=== PATIENT | female | born 1935 | race Asian ===

== ENCOUNTER 2019-01-04 09:17 | Emergency (ER) | payer BC ==
--- NOTE | 2019-01-04 09:51 | EKG ---
FACILITY: [facility] PATIENT NAME: VICKIE HERNANDEZ : [id number] MR: [id number] V: [id number] EXAM DATE: ORDERING PHYSICIAN: PRIYA VAGN TECHNOLOGIST: Test Reason : dizziness Blood Pressure : / mmHG Vent. Rate : 064 BPM Atrial Rate : 064 BPM P-R Int : 162 ms QRS Dur : 086 ms QT Int : 452 ms P-R-T Axes : -08 056 059 degrees QTc Int : 466 ms Sinus rhythm Nonspecific ST findings inferior leads Abnormal ECG No previous ECGs available Confirmed by GIULIANO ESTEVES ([id number]) on 01/04/2019 12:40:55 PM Referred By: Confirmed By:GIULIANO ESTEVES
[2019-01-04 09:53] LABS: PLATELET COUNT, AUTOMATED 210 K/uL (150-450)
[2019-01-04 09:58] LABS: INR 0.96
--- NOTE | 2019-01-04 10:18 | RADIOLOGY IMAGING REPORT ---
FACILITY: [facility] PATIENT NAME: Joaquín Simon : 1935 MR: [id number] V: [id number] EXAM DATE: ORDERING PHYSICIAN: PRIYA VANG TECHNOLOGIST: Location: [facility] [place] Patient: Joaquín Simon : 1935 Visit/Account:[id number] Date of Sevice: 01/04/2019 CT BRAIN NO CONTRAST Indication: dizziness; left sided numbness Comparison: None. Technique: Noncontrast head CT vertex to the skull base obtained. One of the following dose optimizat ion techniques was utilized in the performance of this exam: automated exposure control; adjustment o f the mA and/or kV according to the patient's size; or use of an iterative reconstruction technique. Specific details can be referenced in the facility's radiology CT exam operational policy. Findings: Brain: Ramirez-white matter differentiation and cortex are maintained. Ventricles and sulci:Ventricles and sulci are symmetric in size. There is no abnormal extra-axial flu id collection or mass. Paranasal sinuses:Visualized paranasal sinuses and mastoid air cells are clear. Calvarium:Bones of the skull and skull base are intact. Orbits and soft tissues: Right and left globes and soft tissues of the head are normal. Impression: Normal head CT. No evidence of infarct hemorrhage mass or fracture. Report Dictated By: Zan Sanches at 01/04/2019 10:07 AM Report E-Signed By: Zan Sanches at 01/04/2019 10:09 AM WSN:[id number]
--- NOTE | 2019-01-04 10:19 | ER Report ---
History and Physical Time Seen By MD: 09:21 Hx. of Stated Complaint: PATIENT IS NOT [place] SPEAKING. PATIENTS DAUGHTER REPORTS PATIENT STARTED HAVING BALANCE ISSUES AND LEFT SIDED WEAKNESS STARTING YESTERDAY AT 1600. HPI/ROS CHIEF COMPLAINT: Dizziness HISTORY OF PRESENT ILLNESS: Patient is an 83-year-old female who does not speak any rash but is here with her daughter who speaks [place]ij[place] well. Apparently patient was having some difficulty with balance and dizziness that began around 4 PM yesterday. She denies any focal motor weakness. But just feels unsteady on her feet. She denies any headache, she denies chest pain or shortness of breath. Daughter does not notice any change in the patient's speech. There is no prior history of stroke. The electronic medical record was reviewed for this patient. Patient is followed by Dr. Nguyen. Daughter states that the patient is fairly healthy and normally walks 2-3 miles a day. It was during her walk yesterday that she noticed severe dizziness and imbalance. There is no focal motor weakness noted at that time. The daughter. Patient states the symptoms persisted so she was brought to the emergency department for evaluation. REVIEW OF SYSTEMS: Constitutional: No fever, no chills. Eyes: No discharge. ENT: No sore throat. Cardiovascular: No chest pain, no palpitations. Respiratory: No cough, no shortness of breath. Gastrointestinal: No abdominal pain, no vomiting. Musculoskeletal: No back pain. Skin: No rashes. Neurological: No headache. Dizziness Allergies: Coded Allergies: No Known Drug Allergies (Unverified , 06/15/16) Home Meds Active Scripts Felodipine (FELODIPINE ER) 2.5 Mg Tab.er.24h, 1 TAB PO DAILY for 90 Days, #90 TAB 4 Refills Prov:ARAMIS NGUYEN MD 06/26/18 Alendronate Sodium (FOSAMAX) 70 Mg Tablet, 1 TAB PO QWK for 90 Days, #12 TAB 4 Refills Prov:ARAMIS NGUYEN MD 06/26/18 Reported Medications Glucosam/Chond/Hyalu/Cf Borate (Move Free Joint Health Tablet) 750 Mg-100 Mg- 1.65 Mg-108 Mg Tablet, 1 TAB PO DAILY 06/26/18 Aspirin (ASPIR 81) 81 Mg Tablet., 1 TAB PO QDAY 04/25/18 [place]-3 Fatty Acids/Fish Oil (FISH OIL 1,000 MG CAPSULE) 1 Each Capsule, 1 CAP PO QDAY 04/25/18 Mv-Mn/Folic Acid/Calcium/Vit K (Women's 50 Plus Multivit Tab) 400 Mcg-500 Mg Calcium-20 Mcg Tablet, 1 TAB PO QDAY 04/25/18 Past Medical/Surgical History Past medical history significant for hyperlipidemia, hypertension, history of kidney stones, history of left ankle fracture in the remote past. Smoking Status: Never Smoker Hx Substance Use Disorder: No Hx Alcohol Use: No Constitutional Vital Sign - Last 24 Hours 01/04/19 09:20 Temp 98.0 Pulse 68 Resp 16 O2 Delivery Room Air Physical Exam General Appearance: The patient is alert, has no immediate need for airway protection and no signs of toxicity. Pupils equal and round no pallor or injection. Extraocular muscles are intact and symmetrical. ENT, Mouth: Mucous membranes are moist. Respiratory: There are no retractions, lungs are clear to auscultation. Cardiovascular: Regular rate and rhythm. Gastrointestinal: Abdomen is soft and non tender, no masses, bowel sounds normal. Neurological: Awake and alert. No obvious focal motor weakness, Skin: Warm and dry, no rashes. Musculoskeletal: Neck is supple non tender. Extremities are nontender, nonswollen and have full range of motion. NIH Stroke Scale: 0 Level of consciousness: Alert -0 Answers both questions correctly-0 Performs both tasks correctly-0 Best Gaze: Normal-0 Visual: No visual loss-0 Facial Palsy: Normal, symmetrical movements-0 Motor Left Arm: No drift for 10 seconds-0 Motor Right Arm: No drift for 10 seconds-0 Motor Left Leg: No drift for 5 seconds-0 Motor Right Leg: No drift for 5 seconds-0 Limb Ataxia: Absent-0 Sensory: Normal, no sensory loss-0 Best Language: Normal, no aphasia-0 Dysarthria: Normal-0 Extinction and Inattention: No abnormality-0 Medical Decision Making Data Points Result Diagram: 01/04/1992401/04/19924 Laboratory Hematology Test 01/04/19 09:25 White Blood Count 6.5 k/uL (4.5-11.0) Red Blood Count 4.89 M/uL (4.17-5.56) Hemoglobin 15.6 g/dL (12.0-16.0) Hematocrit 45.6 % (34.0-47.0) Mean Corpuscular Volume 93.3 fL (80.0-96.0) Mean Corpuscular Hemoglobin 32.0 pg (26.0-33.0) Mean Corpuscular Hemoglobin Concent 34.3 g/dL (32.0-36.0) Red Cell Distribution Width 14.3 % (11.5-14.5) Platelet Count 210 K/uL (150-450) Mean Platelet Volume 7.9 fL (7.2-11.1) Neutrophils (%) (Auto) 72.8 % (39.4-72.5) H Lymphocytes (%) (Auto) 21.6 % (17.6-49.6) Monocytes (%) (Auto) 5.0 % (4.1-12.4) Eosinophils (%) (Auto) 0.1 % (0.4-6.7) L Basophils (%) (Auto) 0.5 % (0.3-1.4) Nucleated RBC Relative Count (auto) 0.1 /100WBC Neutrophils # (Auto) 4.8 K/uL (2.0-7.4) Lymphocytes # (Auto) 1.4 K/uL (1.3-3.6) Monocytes # (Auto) 0.3 K/uL (0.3-1.0) Eosinophils # (Auto) 0.0 K/uL (0.0-0.5) Basophils # (Auto) 0.0 K/uL (0.0-0.1) Nucleated RBC Absolute Count (auto) 0.00 K/uL Chemistry Test 01/04/19 09:25 Sodium Level 143 mmol/L (137-145) Potassium Level 3.6 mmol/L (3.5-5.0) Chloride Level 107 mmol/L (98-107) Carbon Dioxide Level 25 mmol/L (22-31) Blood Urea Nitrogen 17 mg/dl (7-18) Creatinine 0.90 mg/dl (0.52-1.04) Glomerular Filtration Rate Calc > 60.0 Random Glucose 152 mg/dl (75-110) Calcium Level 9.3 mg/dl (8.4-10.2) Total Bilirubin 0.6 mg/dl (0.2-1.3) Aspartate Amino Transf (AST/SGOT) 29 U/L (0-35) Alanine Aminotransferase (ALT/SGPT) 33 U/L (0-56) Alkaline Phosphatase 74 U/L (0-126) Troponin I < 0.012 ng/ml Total Protein 8.4 g/dl (6.3-8.2) Albumin 4.5 g/dl (3.5-5.0) Coagulation Test 01/04/19 09:25 Prothrombin Time 12.7 seconds (12.0-14.4) Prothromb Time International Ratio 0.96 Activated Partial Thromboplast Time 31 seconds (23-35) EKG/Imaging EKG Interpretation EKG shows normal sinus rhythm with some ST segment abnormality that is nonspecific. Ventricular rate is 64 bpm. Monitor Interpretation: Normal Sinus Rhythm Imaging FACILITY: [facility] - [place], [place] PATIENT NAME: Joaquín Simon : 1935 MR: [id number] V: [id number] EXAM DATE: ORDERING PHYSICIAN: PRIYA VANG TECHNOLOGIST: Location: [facility] Patient: Joaquín Simon : 1935 Visit/Account:[id number] Date of Sevice: 01/04/2019 CT BRAIN NO CONTRAST Indication: dizziness; left sided numbness Comparison: None. Technique: Noncontrast head CT vertex to the skull base obtained. One of the following dose optimization techniques was utilized in the performance of this exam: automated exposure control; adjustment of the mA and/or kV according to the patient's size; or use of an iterative reconstruction technique. Specific details can be referenced in the facility's radiology CT exam operational policy. Findings: Brain: Ramirez-white matter differentiation and cortex are maintained. Ventricles and sulci:Ventricles and sulci are symmetric in size. There is no abnormal extra-axial fluid collection or mass. Paranasal sinuses:Visualized paranasal sinuses and mastoid air cells are clear. Calvarium:Bones of the skull and skull base are intact. Orbits and soft tissues: Right and left globes and soft tissues of the head are normal. Impression: Normal head CT. No evidence of infarct hemorrhage mass or fracture. Report Dictated By: Zan Sanches at 01/04/2019 10:07 AM Report E-Signed By: Zan Sanches at 01/04/2019 10:09 AM WSN:[id number] Location: [facility] Patient: Joaquín Simon DOB: 1935 Visit/Account:[id number] Date of Sevice: 01/04/2019 ADDENDUM #1 ADDENDUM: These findings were discussed with PRIYA VANG at 01/04/2019 1:30 PM. Report Dictated By: Michele Angulo MD at 01/04/2019 1:30 PM Report E-Signed By: Michele Angulo MD at 01/04/2019 1:31 PM ORIGINAL REPORT EXAMINATION: Brain MRI without IV contrast HISTORY: Dizziness. COMPARISON: CT of the brain from the same day. TECHNIQUE: Multi-planar, multi-sequence brain MRI was performed without IV contrast administration. FINDINGS: Brain and other intracranial structures: There is a region of mild patchy restricted diffusion involving the right basal ganglia and right ibarra radiata. There is a moderate burden of patchy T2 hyperintense foci scattered within the cerebral white matter. Ventricles and sulci are normal in size for patient's age. No midline shift, mass, or hemorrhage. Calvarium / scalp: Negative. Skull base: Negative. Visualized sinuses / orbits: Mild mucosal thickening throughout the paranasal sinuses. Both globes are elongated with irregular outward bulging contour posteriorly. IMPRESSION: Small region of patchy foci of restricted diffusion involving the right basal ganglia and right ibarra radiata compatible with acute infarct. Moderate burden of patchy T2 hyperintense foci scattered within the cerebral white matter, likely chronic small vessel ischemic changes. Abnormal elongation of the globes with with posterior bulging of the posterior globes suggestive of staphyloma or coloboma. Report Dictated By: Michele Angulo MD at 01/04/2019 1:08 PM Report E-Signed By: Michele Angulo MD at 01/04/2019 1:22 PM WSN:[id number] FACILITY: [facility] [place], [place] PATIENT NAME: Joaquín Simon : 1935 MR: [id number] V: [id number] EXAM DATE: ORDERING PHYSICIAN: PRIYA VANG TECHNOLOGIST: Location: [facility] Patient: Joaquín Simon : 1935 Visit/Account:[id number] Date of Sevice: 01/04/2019 EXAMINATION: MRA of the [place] HISTORY: Dizziness. COMPARISON: None. TECHNIQUE: 4F-ddxt-ed-flight angiography was performed in the axial plane on the [place] without IV gadolinium. The exam was tailored for assessment of the [place] only. FINDINGS: Carotids: The parasellar internal carotid arteries are mildly narrowed by plaqu e. Otherwise negative. Anterior/posterior communicating arteries: Negative. Anterior cerebral arteries: Negative. Middle cerebral arteries: Negative. Posterior cerebral arteries: Negative. Intracranial vertebral arteries: Negative. The left vertebral artery is dominant. Basilar artery: Negative. PICA/AICA/SCA: Negative. IMPRESSION: No evidence of occlusion, aneurysm, or high-grade stenosis of the intracranial arterial vasculature. Report Dictated By: Michele Angulo MD at 01/04/2019 1:23 PM Report E-Signed By: Michele Angulo MD at 01/04/2019 1:28 PM WSN:[id number] FACILITY: [facility] [place], [place] PATIENT NAME: Joaquín Simon : 1935 MR: [id number] V: [id number] EXAM DATE: ORDERING PHYSICIAN: PRIYA VANG TECHNOLOGIST: Location: [facility] Patient: Joaquín Simon : 1935 Visit/Account:[id number] Date of Sevice: 01/04/2019 EXAMINATION: MRA of the neck without IV contrast MRA of the neck with IV contrast HISTORY: Dizziness. COMPARISON: None. TECHNIQUE: A preliminary fat suppressed axial sequence was obtained in the mid- upper neck (for assessment of dissection) followed by non-gadolinium enhanced 3D-time of flight angiography in the axial plane on the carotid bifurcations. The patient received a bolus of intravenous gadolinium during which coronal 3D- time of flight angiography was performed from the aortic arch through the [place]. 3D and 2D sagittal and coronal reformatted images were obtained form the source data. Medical Data Entry Clerk images have been stored on PACS. Stenosis of the internal carotid arteries are calculated using NASCET criteria. Contrast: 15 mL of IV MultiHance FINDINGS: Angiographic Findings: Aortic arch/great vessel origins: Negative. Right CCA/ICA: Negative. 0% stenosis of the origin of the right ICA. Left CCA/ICA: Negative. 0% stenosis of the origin of the left ICA. Vertebrobasilar: Negative. [place]: Negative. Non-angiographic Findings: Multiple cysts in the liver. Multilevel disc degenerative changes in the cervica l spine. IMPRESSION: Normal MRA of the neck. Report Dictated By: Michele Angulo MD at 01/04/2019 1:28 PM Report E-Signed By: Michele Angulo MD at 01/04/2019 1:35 PM WSN:[id number] ED Course/Re-evaluation ED Course 01/04/2019 12:56:[address] scan of the head is negative, we will obtain MRI of the brain along with MRA of the head and neck. 01/04/2019 2:03:39 pm I spoke with Dr. Marie from [facility] neurology. History physical exam and imaging studies were reviewed. It was his recommendation that the patient be admitted and does feel comfortable that she can be transferred to [facility] to complete that workup. 01/04/2019 2:04:51 pm I spoke with the on-call hospitalist at [facility], they have agreed to accept the patient for stroke workup at this time. Patient and patient's family were made aware of necessity for transport. Decision to Disposition Date: Jan 04, 2019 Decision to Disposition Time: 14:06 Depart Departure Latest Vital Signs Vital Signs Date Time Temp Pulse Resp B/P (MAP) Pulse Ox O2 Delivery O2 Flow Rate FiO2 01/04/19 09:20 98.0 68 16 Room Air Impression: Primary Impression: Acute CVA (cerebrovascular accident) Condition: Condition Unchanged Disposition: [facility]FER TO [facility] (to [facility]) Referrals: ARAMIS NGUYEN MD (PCP) PRIYA VANG MD Jan 04, 2019 10:19
[2019-01-04] MEDS ORDERED: GADOBENATE 529MG/1ML 15ML VIAL IVP ONE (11:48)
[2019-01-04] MEDS ORDERED: NS(*) 0.9% 50 ML BAG 50 ML ONE (11:48)
--- NOTE | 2019-01-04 13:30 | RADIOLOGY IMAGING REPORT ---
FACILITY: [facility] [place] PATIENT NAME: Joaquín Simon : 1935 MR: [id number] V: [id number] EXAM DATE: ORDERING PHYSICIAN: PRIYA VANG TECHNOLOGIST: Location: [facility] [place] Patient: Joaquín Simon : 1935 Visit/Account:[id number] Date of Sevice: 01/04/2019 ADDENDUM #1 ADDENDUM: These findings were discussed with PRIYA VANG at 01/04/2019 1:30 PM. Report Dictated By: Michele Angulo MD at 01/04/2019 1:30 PM Report E-Signed By: Michele Angulo MD at 01/04/2019 1:31 PM ORIGINAL REPORT EXAMINATION: Brain MRI without IV contrast HISTORY: Dizziness. COMPARISON: CT of the brain from the same day. TECHNIQUE: Multi-planar, multi-sequence brain MRI was performed without IV contrast administration. FINDINGS: Brain and other intracranial structures: There is a region of mild patchy restricted diffusion invol ving the right basal ganglia and right ibarra radiata. There is a moderate burden of patchy T2 hyperi ntense foci scattered within the cerebral white matter. Ventricles and sulci are normal in size for p atient's age. No midline shift, mass, or hemorrhage. Calvarium / scalp: Negative. Skull base: Negative. Visualized sinuses / orbits: Mild mucosal thickening throughout the paranasal sinuses. Both globes a re elongated with irregular outward bulging contour posteriorly. IMPRESSION: Small region of patchy foci of restricted diffusion involving the right basal ganglia and right coron a radiata compatible with acute infarct. Moderate burden of patchy T2 hyperintense foci scattered within the cerebral white matter, likely chr onic small vessel ischemic changes. Abnormal elongation of the globes with with posterior bulging of the posterior globes suggestive of s taphyloma or coloboma. Report Dictated By: Michele Angulo MD at 01/04/2019 1:08 PM Report E-Signed By: Michele Angulo MD at 01/04/2019 1:22 PM WSN:[id number]
--- NOTE | 2019-01-04 13:36 | RADIOLOGY IMAGING REPORT ---
FACILITY: [facility] [place] PATIENT NAME: Joaquín Simon : 1935 MR: [id number] V: [id number] EXAM DATE: ORDERING PHYSICIAN: PRIYA VANG TECHNOLOGIST: Location: [facility] Patient: Joaquín Simon : 1935 Visit/Account:[id number] Date of Sevice: 01/04/2019 EXAMINATION: MRA of the [place] HISTORY: Dizziness. COMPARISON: None. TECHNIQUE: 1R-wmny-jv-flight angiography was performed in the axial plane on the [place] without IV emiliana olinium. The exam was tailored for assessment of the [place] only. FINDINGS: Carotids: The parasellar internal carotid arteries are mildly narrowed by plaque. Otherwise negative. Anterior/posterior communicating arteries: Negative. Anterior cerebral arteries: Negative. Middle cerebral arteries: Negative. Posterior cerebral arteries: Negative. Intracranial vertebral arteries: Negative. The left vertebral artery is dominant. Basilar artery: Negative. PICA/AICA/SCA: Negative. IMPRESSION: No evidence of occlusion, aneurysm, or high-grade stenosis of the intracranial arterial vasculature. Report Dictated By: Michele Angulo MD at 01/04/2019 1:23 PM Report E-Signed By: Michele Angulo MD at 01/04/2019 1:28 PM WSN:[id number]
--- NOTE | 2019-01-04 13:43 | RADIOLOGY IMAGING REPORT ---
FACILITY: [facility] PATIENT NAME: Joaquín Simon : 1935 MR: [id number] V: [id number] EXAM DATE: ORDERING PHYSICIAN: PRIYA VANG TECHNOLOGIST: Location: Patient: Joaquín Simon : 1935 Visit/Account:[id number] Date of Sevice: 01/04/2019 EXAMINATION: MRA of the neck without IV contrast MRA of the neck with IV contrast HISTORY: Dizziness. COMPARISON: None. TECHNIQUE: A preliminary fat suppressed axial sequence was obtained in the mid-upper neck (for asses sment of dissection) followed by non-gadolinium enhanced 3D-time of flight angiography in the axial p tati on the carotid bifurcations. The patient received a bolus of intravenous gadolinium during which coronal 3D-time of flight angiography was performed from the aortic arch through the [place]. 3D and 2D sagittal and coronal reformatted images were obtained form the source data. Waterproofing Mixer images have been stored on PACS. Stenosis of the internal carotid arteries are calculated using LINDA CET criteria. Contrast: 15 mL of IV MultiHance FINDINGS: Angiographic Findings: Aortic arch/great vessel origins: Negative. Right CCA/ICA: Negative. 0% stenosis of the origin of the right ICA. Left CCA/ICA: Negative. 0% stenosis of the origin of the left ICA. Vertebrobasilar: Negative. [place]: Negative. Non-angiographic Findings: Multiple cysts in the liver. Multilevel disc degenerative changes in the cervical spine. IMPRESSION: Normal MRA of the neck. Report Dictated By: Michele Angulo MD at 01/04/2019 1:28 PM Report E-Signed By: Michele Angulo MD at 01/04/2019 1:35 PM WSN:[id number]
[2019-01-04] MEDS ORDERED: LABETALOL HCL 100 MG/20ML VIAL IVP ONE (14:25)
[2019-01-04 14:59] VITALS: BP 150/79
== END 2019-01-04 15:30 | disposition short-term general hospital (02) ==
LOC: ER 09:26
DX: I63.9 Cerebral infarction, unspecified (principal)
CPT/HCPCS: 70450; 70544; 70549; 70551; 84484; 85025; 85610; 85730; 93005; 96374; 99285; A9577; J7050; 82040; 82247; 82310; 82374; 82435; 82565; 82947; 84075; 84132; 84155; 84295; 84450; 84460; 84520

== ENCOUNTER → 2019-01-04 | Outpatient (CLI) | payer BC ==
[~2019-01-04] MED LIST: ALEN70TA43 PO; ASPI-1471 PO; FAMO20TA28 PO; GLUC-198 PO; GLUC-304 PO; GLUC1TAB66 PO; MULT1TAB64 PO; MV-M1TAB57 PO; OMEG-11 PO; POTA-30 PO; PRED20TA6 PO; [UNRECOGNIZED DRUG - CODE] PO; bp med
== END ==
LOC: AMB 15:05
PROVIDERS: ATTEND Nurse Practitioner
DX: I63.9 Cerebral infarction, unspecified (principal)
CPT/HCPCS: A0425; A0426